=== PATIENT | female | born 1970 | race Caucasian/White ===

== ENCOUNTER 2024-05-04 17:28 | Emergency (ER) | payer MEDICAID ==
[~2024-05-04] VITALS: Ht 149.9 cm; Wt 59.9 kg
[2024-05-04 18:07] VITALS: BP_SYST 98; PULSE 88; RESP 19; TEMP 97.2; O2SAT 93
[2024-05-04] MEDS ORDERED: DICL50TA9 PO (18:28)
[2024-05-04 18:40] VITALS: BP_SYST 115; PULSE 78; RESP 18; TEMP 97.4; O2SAT 95
== END 2024-05-04 18:38 | disposition home or self-care (01) ==
LOC: SED 17:28
DX: M25.561 Pain in right knee (principal); Z79.899 Other long term (current) drug therapy
CPT/HCPCS: 99283